=== PATIENT | female | born 1985 | race Caucasian/White ===

== ENCOUNTER 2017-06-01 12:55 | Emergency (ER) | payer BC, OTHER ==
[~2017-06-01] VITALS: Ht 154.9 cm; Wt 81.7 kg
[~2017-06-01 12:55] MED LIST: IBUPROFEN 800800 M1 PO; ROBAXIN 750 MG750 M1 PO; TRAMADOL 50 MG50 MG PO
[2017-06-01 13:02] VITALS: BP 127/87
== END 2017-06-01 14:05 | disposition home or self-care (01) ==
LOC: M.ERS 12:55
DX: S80.02XA Contusion of left knee, initial encounter (principal); S63.501A Unspecified sprain of right wrist, initial encounter; V89.2XXA Person injured in unspecified motor-vehicle accident, traffic, initial encounter; W22.10XA Striking against or struck by unspecified automobile airbag, initial encounter; Y93.89 Activity, other specified; Y92.89 Other specified places as the place of occurrence of the external cause; Y99.8 Other external cause status

== ENCOUNTER 2020-09-05 15:43 | Emergency (ER) | payer OTHER ==
[~2020-09-05] VITALS: Ht 152.4 cm; Wt 79.4 kg
[2020-09-05] MEDS ORDERED: LIPITOR 10 MG10 M1 PO (15:55)
[2020-09-05] MEDS ORDERED: VITAMIN D21250 MC1 PO (15:55)
[2020-09-05] MEDS ORDERED: B12 ACTIVE1000 MCG PO (15:55)
[2020-09-05 16:24] LABS: URINE BILIRUBIN NEGATIVE (Negative); URINE BLOOD NEGATIVE (Negative); URINE CLARITY CLEAR; URINE COLOR YELLOW; URINE GLUCOSE-RANDOM NEGATIVE (Negative); URINE KETONES NEGATIVE (Negative); URINE LEUKOCYTES-REFLEX NEGATIVE (Negative); URINE NITRITE-REFLEX NEGATIVE (Negative); URINE PROTEIN NEGATIVE (Negative); URINE UROBILINOGEN 0.2 E.U./dl (0.2-1.0)
[2020-09-05 16:45] LABS: ABSOLUTE EOSINOPHILS 0.1 thou/uL (0.0-0.7); ABSOLUTE MONOCYTES 0.3 thou/uL (0.0-1.2); ABSOLUTE NEUTROPHILS 2.4 thou/uL (1.6-8.1); BASOPHILS 0.6 %; EOSINOPHILS 1.4 %; HEMATOCRIT 41.9 % (37.0-47.0); LYMPHOCYTES 25.4 %; MCHC 33.4 g/dL (28.0-37.0); MCV 92.8 fL (80.0-100.0); MONOCYTES 7.7 %; MPV 8.5 fl. (7.2-11.1); NUCLEATED RBCS 0 /100WBC; PLATELET COUNT* 131 thou/uL (150-400); POLYS 64.9 %; RBC 4.51 mil/uL (4.20-5.00); RDW-CV 12.7 % (10.5-14.5); WBC 3.7 thou/uL (4.0-11.0)
[2020-09-05 16:54] LABS: CALCIUM 9.5 mg/dL (8.5-10.1); CREATININE 0.7 mg/dL (0.6-1.3); POTASSIUM 3.5 mmol/L (3.5-5.1)
[2020-09-05 16:58] LABS: ALBUMIN 3.7 g/dL (3.4-5.0); TOTAL BILIRUBIN 0.6 mg/dL (<0.1-1.0); TOTAL PROTEIN 6.7 g/dL (6.4-8.2)
[2020-09-05] MEDS ORDERED: BENTYL 10 MG CA10 M1 PO (18:00)
[2020-09-05] MEDS ORDERED: ZOFRAN ODT4 MG PO (18:00)
[2020-09-05 18:15] VITALS: BP 148/96
--- NOTE | 2020-09-09 10:27 | EKG ---
[place] [address] ELECTROCARDIOGRAM REPORT Name: EDDI DOAN Room: [facility]#: [id number] Admission: 09/05/20 Attend Phys: Discharge: 09/05/20 Date of : 83 Date of Service: 09/05/20 1639 Report #: [id number] THIS REPORT FOR: //name// [facility] ED Test Date: 2020-09-05 Test Time: 16:39:43 Pat Name: EDDI DOAN Department: Room: Gender: F [employer] Developer: : 1985 Requested By: Sandra Phipps Order Number: [id number] MD: Spencer Fernandez Measurements Intervals [place] Rate: 63 P: 83 KS: 193 QRS: 108 QRSD: 104 T: 87 QT: 450 QTc: 461 Interpretive Statements Sinus arrhythmia Left posterior fascicular block Anterior infarct, age indeterminate Compared to ECG 01/13/2017 10:08:12 Left posterior fascicular block now present Myocardial infarct finding now present Sinus rhythm no longer present Electronically Signed On 09-09-2020 10:27:35 CDT by Spencer Fernandez [email or web address] <ELECTRONICALLY SIGNED> By: Spencer Fernandez MD, FACC 09/09/20 1027 1639 1639 Spencer Fernandez MD, FAC /EPI
== END 2020-09-05 18:18 | disposition home or self-care (01) ==
LOC: M.ERS 15:43
PROVIDERS: Nurse Practitioner Family
DX: B34.9 Viral infection, unspecified (principal); R10.31 Right lower quadrant pain; R10.32 Left lower quadrant pain; R10.84 Generalized abdominal pain; Z90.49 Acquired absence of other specified parts of digestive tract